=== PATIENT | male | born 1985 | race Two or more races ===

== ENCOUNTER 2023-04-22 05:10 | Emergency (ER) | payer MEDICAID ==
[~2023-04-22] VITALS: Ht 162.6 cm; Wt 96.6 kg
[~2023-04-22 05:10] MED LIST: CEPH500T PO; IBU600T PO; MUPI2OIN2 EX
[2023-04-22 08:55] VITALS: BP 167/93; PULSE 120; RESP 20; TEMP 99; O2SAT 96
== END 2023-04-22 09:08 ==
LOC: ER 05:10
DX: F29 Unspecified psychosis not due to a substance or known physiological condition (principal); Z79.899 Other long term (current) drug therapy

== ENCOUNTER → 2023-05-13 20:46 | Emergency (ER) | payer MEDICAID ==
[~2023-05-13] VITALS: Ht 180.3 cm; Wt 90.0 kg
[2023-05-13 20:47] VITALS: BP 152/97; PULSE 95; RESP 18; O2SAT 97
[2023-05-13 21:04] LABS: Urine WBC None Seen /hpf (0 - 3)
[2023-05-13 21:19] LABS: Urine Bacteria FEW /hpf (None Seen); Urine Blood Negative /uL (Negative); Urine Clarity Clear (Clear); Urine Color Colorless (Yellow); Urine Protein, UAD Negative (Negative); Urine Urobilinogen Normal (Negative); Urine pH 6.5 (5.0-8.0)
== END | disposition left against medical advice (07) ==
LOC: ER 20:46
DX: K46.9 Unspecified abdominal hernia without obstruction or gangrene (principal); Z53.21 Procedure and treatment not carried out due to patient leaving prior to being seen by health care provider
CPT/HCPCS: 81001